=== PATIENT | female | born 1975 | race Caucasian/White ===

== ENCOUNTER 2019-02-24 05:37 | Day surgery (SDC) | payer BC ==
[2019-02-22 16:33] LABS: BASOPHILS # (AUTO) 0.1 X10'3 (0-0.2); BASOPHILS % (AUTO) 0.9 % (0-1); EOSINOPHILS # (AUTO) 0.2 X10'3 (0-0.9); LYMPHOCYTES # (AUTO) 2.5 X10'3 (1.1-4.8); LYMPHOCYTES % (AUTO) 32.8 % (21-51); MEAN CORPUSCULAR HEMOGLOBIN 30.4 PG (27.0-31.0); MEAN CORPUSCULAR HGB CONC 33.1 g/dL (33.0-36.5); MEAN CORPUSCULAR VOLUME 91.9 FL (78-98); MEAN PLATELET VOLUME 9.4 FL (7.4-10.4); MONOCYTES # (AUTO) 0.5 X10'3 (0-0.9); MONOCYTES % (AUTO) 7.1 % (2-12); NEUTROPHILS # (AUTO) 4.3 X10'3 (1.8-7.7); NEUTROPHILS % (AUTO) 56.2 % (42-75); PRE OP HEMOGLOBIN 13.9 g/dL (12.0-16.0); PRE OP PLATELET COUNT 222 X10'3 (140-440); RED BLOOD COUNT 4.58 X10'6 (4.20-5.60); RED CELL DISTRIBUTION WIDTH 13.2 % (11.5-14.5)
[2019-02-22 16:35] LABS: CLARITY,URINE CLOUDY (Clear); COLOR,URINE YELLOW (Yellow); GLUCOSE, URINE NEGATIVE (Neg); KETONES,URINE TRACE mg/dl (Neg); LEUKOCYTE ESTERASE ,URINE NEGATIVE (Neg); NITRITES, URINE NEGATIVE (Neg); OCCULT BLOOD,URINE NEGATIVE (Neg); PROTEIN,URINE TRACE mg/dl (Neg); UA COLLECTION TYPE CLN CATCH MIDSTREAM; UROBILINOGEN,URINE 0.2 E.U/dL (0.2-1.0)
[2019-02-22 16:41] LABS: BACTERIA,URINE 2+ /HPF (Neg); MUCUS STRANDS MODERATE /LPF (Neg); RBC,URINE 0-2 /HPF (0-2); SQUAMOUS EPITHELIAL CELL,UR MANY /LPF (FEW); WBC,URINE 0-4 /HPF (0-4)
[2019-02-22 16:50] LABS: ALBUMIN 3.7 G/DL (3.4-5.0); ALBUMIN/GLOBULIN RATIO 1.1 (1.1-1.5); ALKALINE PHOSPHATASE 41 IU/L (46-116); BLOOD UREA NITROGEN 12 MG/DL (7-18); BUN/CREATININE RATIO 14.6 (6.6-38.0); CALCIUM 8.2 MG/DL (8.5-10.1); CHLORIDE 107 MMOL/L (99-107); CREATININE 0.82 MG/DL (0.40-0.90); PRE OP ALT 16 U/L (30-65); PRE OP ANION GAP 8 (8-16); PRE OP AST 10 U/L (10-37); PRE OP BILIRUB, TOTAL 0.4 MG/DL (0.0-1.0); PRE OP GLUCOSE 86 MG/DL (70-104); PRE OP SODIUM 139 MMOL/L (135-145); TOTAL CARBON DIOXIDE 24.1 MMOL/L (24-32); eGFR 75 ML/MIN
[~2019-02-24] VITALS: Ht 160 cm; Wt 65.3 kg
[2019-02-24] VITALS (10 sets, daily range): BP systolic 106–125; BP diastolic 59–69
[~2019-02-24 05:37] MED LIST: FLUO-1 PO
[2019-02-24] MEDS ORDERED: LIDOcaine 1% (10mg/ml) 2ml vial ONE (05:54)
[2019-02-24] MEDS ORDERED: cefazolin/dext.iso 2gm/50ml 50 ML IV ONE (06:30)
[2019-02-24] MEDS ORDERED: famotidine 20mg tablet PO ONE (06:30)
[2019-02-24] MEDS ORDERED: ringers solution, lacted 1,000 ML IV SCH ×2 (06:30→08:58)
[2019-02-24] MEDS ORDERED: BUPIVAcaine/PF 2.5mg/ml (0.25%) 10ml vial ONE (07:22)
[2019-02-24] MEDS ORDERED: ceFAZolin 1000mg inj ONE (07:22)
[2019-02-24] MEDS ORDERED: sevoflurane 250ml liquid IH ONE (08:18)
[2019-02-24] MEDS ORDERED: midazolam 2 mg/2 ml injection ONE (08:27)
[2019-02-24] MEDS ORDERED: fentaNYL/PF 50MCG/1 ML 2ML syringe ONE (08:27)
[2019-02-24] MEDS ORDERED: dexamethasone sod phosphate 4mg/ml inj. ONE (08:37)
[2019-02-24] MEDS ORDERED: ketorolac trometh. 30mg/ml inj. ONE (08:38)
[2019-02-24] MEDS ORDERED: LIDOcaine 2% (20mg/ml) 5ml vial ONE (08:38)
[2019-02-24] MEDS ORDERED: ondansetron/PF 4mg/2ml inj ONE (08:38)
[2019-02-24] MEDS ORDERED: propofol inj 20 ML IV ONE (08:38)
[2019-02-24] MEDS ORDERED: rocuronium 10mg/ml inj IV ONE (08:38)
[2019-02-24] MEDS ORDERED: ondansetron/PF 4mg/2ml inj IV PRN (09:00)
[2019-02-24] MEDS ORDERED: meperidine/PF 25mg/ml syringe IV PRN ×3 (09:00)
[2019-02-24] MEDS ORDERED: proCHLORperazine 10 MG/2 ml inj IV PRN (09:00)
[2019-02-24] MEDS ORDERED: morphine 4 MG/ML inj SYRINge IV PRN ×2 (09:00)
[2019-02-24] MEDS ORDERED: bacitracin 15gm ointment TP ONE (09:40)
--- NOTE | 2019-02-24 10:00 | NUR ---
Received from OR via BED , accompanied by Anesthesiologist DR VO and report given by Anesthesiolgist. PATIENT WAKING UP, DENIES PAIN, V/S WNL, CSM INTACT, 20G PIV TO LUE, SCD ON, BANDAIDS TO ABDOMEN CDI.
[2019-02-24] MEDS ORDERED: meperidine/PF 50mg/ml syringe ONE (10:10)
--- NOTE | 2019-02-24 11:10 | NUR ---
PATIENT A&OX4, DENIES PAIN, V/S WNL, CSM INTACT, 20G PIV TO LUE D/C, SCD OFF, BANDAIDS TO ABDOMEN CDI. I HAVE REVIEWED D/C INSTRUCTIONS WITH PATIENT AND THEY HAVE VERBALIZED UNDERSTANDING. PATIENT D/C HOME WITH ALL BELONGINGS AND FAMILY GAVE TRANSPORT HOME.
== END 2019-02-24 11:10 | disposition home or self-care (01) ==
LOC: PAS 05:37
PROVIDERS: ATTEND Surgery
DX: K43.6 Other and unspecified ventral hernia with obstruction, without gangrene (principal); F32.9 Major depressive disorder, single episode, unspecified; Z87.891 Personal history of nicotine dependence; Z79.899 Other long term (current) drug therapy
CPT/HCPCS: 36415; 49653; 80053; 81001; 82948; 85025; C1713; C1758; C1781; J0690; J1100; J1885; J2001; J2175; J2250; J2405; J2704; J3010; J3490; J7120; A4215; A4618; A7000